=== PATIENT | male | born 1955 | race Two or more races ===

== ENCOUNTER 2022-01-22 10:09 | Emergency (ER) | payer OTHER ==
[~2022-01-22] VITALS: Ht 154.9 cm; Wt 65.5 kg
[2022-01-22 10:12] VITALS: BP 167/74
[2022-01-22] MEDS ORDERED: ONDANSETRON 4 MG/2 ML VIAL IVP ONE (10:45)
--- NOTE | 2022-01-22 10:45 | NUR ---
66 y/o male bib self with c/o nausea, vomiting and dizziness x 4 days. Per patient he says "his blood pressure is high." Patient does not have any HTN medications. Patients blood sugar at triage was 144. Medical History: DM NKDA
[2022-01-22] MEDS ORDERED: ASPIRIN 81 MG TAB.CHEW PO ONE ×2 (10:55→11:30)
[2022-01-22] MEDS ORDERED: NITROGLYCERIN 0.4 MG TAB SL ONE (10:55)
--- NOTE | 2022-01-22 10:58 | NUR ---
X-Ray at bedside.
--- NOTE | 2022-01-22 10:59 | NUR ---
Blood work obtained and handed to CPT [place] at bedside.
--- NOTE | 2022-01-22 11:01 | NUR ---
Per Dr. Early give Nitro to lower BP.
[2022-01-22 11:07] LABS: BASOPHILS % (AUTO) 0.3 % (0.0-2.0); EOSINOPHILS % (AUTO) 0.1 % (0.0-4.0); HEMATOCRIT 35.5 % (36-52); HEMOGLOBIN 11.9 g/dL (12.0-18.0); LYMPHOCYTES # (AUTO) 0.8 K/uL (2.0-11.5); LYMPHOCYTES % (AUTO) 7.2 % (20.5-51.1); MEAN CORPUSCULAR HEMOGLOBIN 30 pg (27-31); MEAN CORPUSCULAR HGB CONC 34 g/dL (33-37); MEAN CORPUSCULAR VOLUME 90.5 fL (80-94); MONOCYTES # (AUTO) 0.3 K/uL (0.8-1.0); MONOCYTES % (AUTO) 2.7 % (1.7-9.3); NEUTROPHILS # (AUTO) 9.9 K/uL (1.8-7.7); NEUTROPHILS % (AUTO) 89.7 % (42.2-75.2); PLATELET COUNT (AUTO) 297 K/uL (140-450); RED BLOOD CELL COUNT(AUTO) 3.92 MIL/uL (4.20-6.10); RED CELL DISTRIBUTION WIDTH 12.9 % (11.6-13.7)
[2022-01-22] MEDS ORDERED: ASPIRIN 325 MG TAB PO ONE (11:20)
--- NOTE | 2022-01-22 11:35 | NUR ---
Dr. Early evaluating patient at bedside.
[2022-01-22 12:02] LABS: ALBUMIN 3.2 g/dL (3.4-5.0); ANION GAP 12.1 (8-16); ASPARTATE AMINOTRANSFERASE 18 U/L (15-37); CARBON DIOXIDE 24.5 mmol/L (21-32); CHLORIDE 105 mmol/L (98-107); CREATININE 1.3 mg/dL (0.6-1.3); GFR ARICAN-AMERICAN 71 mL/min (>90); GLUCOSE 148 mg/dL (74-106); LIPASE 102 U/L (73-393); POTASSIUM 4.6 mmol/L (3.5-5.1); SODIUM SERUM 137 mmol/L (136-145); TOTAL BILIRUBIN 0.3 mg/dL (0.0-1.0); UREA NITROGEN, BLOOD 26 mg/dL (7-18)
--- NOTE | 2022-01-22 13:30 | NUR ---
Patient has daughter at bedside. Vital signs stable. Patient denies pain. Will continue to monitor.
[2022-01-22] MEDS ORDERED: LISI-487 PO (13:56)
[2022-01-22] MEDS ORDERED: ATOR20TA PO (13:56)
[2022-01-22] MEDS ORDERED: FISH100053 PO (13:56)
[2022-01-22] MEDS ORDERED: PIOG15TA84 PO (13:56)
[2022-01-22] MEDS ORDERED: ONDA-188 SL (13:56)
[2022-01-22] MEDS ORDERED: INSU100S22 SUBQ (13:56)
[2022-01-22] MEDS ORDERED: ASPI-1822 PO (13:56)
[2022-01-22] MEDS ORDERED: METF-346 PO (13:56)
[2022-01-22 14:18] VITALS: BP 159/72
--- NOTE | 2022-01-22 14:18 | NUR ---
Patient discharged with v/s stable. Written and verbal after care instructions given. Patient alert, oriented and verbalized understanding of instructions. Ambulatory with steady gait. All questions addressed prior to discharge. ID band removed. Patient advised to follow up with PMD. Rx of Zofran given. Opportunity to ask questions provided and answered.
== END 2022-01-22 14:18 | disposition home or self-care (01) ==
LOC: MED 10:09
DX: R11.2 Nausea with vomiting, unspecified (principal); Z20.822 Contact with and (suspected) exposure to COVID-19; E11.65 Type 2 diabetes mellitus with hyperglycemia; R51.9 Headache, unspecified; I10 Essential (primary) hypertension; Z79.899 Other long term (current) drug therapy; Z79.82 Long term (current) use of aspirin; Z79.4 Long term (current) use of insulin; Z98.890 Other specified postprocedural states
CPT/HCPCS: 36415; 71045; 80053; 83690; 83880; 84484; 85025; 87426; 93005; 96374; 99285; J2405; Q0092